=== PATIENT | male | born 1990 | race Caucasian/White ===

== ENCOUNTER 2017-08-24 16:04 | Emergency (ER) | payer SELFPAY ==
[~2017-08-24] VITALS: Ht 172.7 cm; Wt 72.7 kg
[2017-08-24 17:58] VITALS: BP 132/61
[2017-08-24] MEDS ORDERED: LORA0.5T83 PO (18:38)
== END 2017-08-24 19:20 | disposition left against medical advice (07) ==
LOC: EMS 16:06
DX: F41.9 Anxiety disorder, unspecified (principal); F32.9 Major depressive disorder, single episode, unspecified
CPT/HCPCS: 99283

== ENCOUNTER 2018-10-04 01:45 | Inpatient (IN) | payer MEDICAID, OTHER ==
[~2018-10-04] VITALS: Ht 175.3 cm; Wt 77.2 kg
[~2018-10-04 01:45] MED LIST: LORA0.5T83 PO
[2018-10-04 04:14] LABS: BASOPHILS % (AUTO) 0.7 % (0.0-2.0); EOSINOPHILS % (AUTO) 5.1 % (1.0-6.0); HEMATOCRIT 43.9 % (41-53); HEMOGLOBIN 14.8 g/dL (13.5-17.5); LYMPHOCYTES # (AUTO) 3.4 K/uL (1.0-4.8); LYMPHOCYTES % (AUTO) 35.7 % (22.0-44.0); MEAN CORPUSCULAR HEMOGLOBIN 31.8 pg (26.0-34.0); MEAN CORPUSCULAR HGB CONC 33.8 G/dL (31.0-37.0); MEAN CORPUSCULAR VOLUME 94 fL (80-100); MONOCYTES # (AUTO) 0.9 K/uL (0.1-1.0); NEUTROPHILS # (AUTO) 4.7 K/uL (1.8-7.7); NEUTROPHILS % (AUTO) 49.5 % (40.0-70.0); PLATELET COUNT (AUTO) 280 K/uL (150-450); RED BLOOD CELL COUNT(AUTO) 4.66 MIL/uL (4.50-5.90)
[2018-10-04 04:20] LABS: ANION GAP 13 mmol/L (8-16); CALCIUM, TOTAL 9.2 mg/dL (8.8-10.5); CARBON DIOXIDE 27 mmol/L (22-29); CHLORIDE 102 mmol/L (98-107); CREATININE 1.26 mg/dL (0.60-1.30); GLOMERULAR FILTR. RATE CALC > 60 mL/min (>60); GLUCOSE,RANDOM 95 mg/dL (70-110); SODIUM SERUM 142 mmol/L (136-145); UREA NITROGEN, BLOOD 18 mg/dL (7-18)
[2018-10-04 04:27] LABS: ALANINE AMINOTRANSFERASE 275 U/L (12-78); ALBUMIN 4.3 g/dL (3.4-5.0); ALKALINE PHOSPHATASE 103 U/L (46-116); ASPARTATE AMINOTRANSFERASE 552 U/L (15-37); BILIRUBIN,TOTAL 0.3 mg/dL (0.1-1.0); TOTAL PROTEIN, SERUM 7.5 g/dL (6.4-8.2)
[2018-10-04 05:27] LABS: AMPHET/METH SCREEN,URINE NEGATIVE (NEGATIVE); BARBITURATE SCREEN, URINE NEGATIVE (NEGATIVE); BENZODIAZEPINES SCREEN,URINE NEGATIVE (NEGATIVE); CANNABINOID SCREEN,URINE NEGATIVE (NEGATIVE); COCAINE SCREEN,URINE NEGATIVE (NEGATIVE); METHADONE SCREEN, URINE NEGATIVE (NEGATIVE); OPIATE SCREEN,URINE NEGATIVE (NEGATIVE)
[2018-10-04 05:30] LABS: PHENCYCLIDINE SCREEN,URINE NEGATIVE (NEGATIVE)
[2018-10-04] MEDS ORDERED: LIDOCAINE 1% 10 ML VIAL INJ ONE (07:00)
[2018-10-04] MEDS ORDERED: ACETAMINOPHEN 500 MG TABLET PO ONE (08:15)
[2018-10-04] MEDS ORDERED: BACITRACIN 0.9 GM PACKET OINTMENT TP ONE (08:15)
[2018-10-04] MEDS ORDERED: IBUPROFEN 800 MG TABLET PO ONE (09:00)
[2018-10-04] MEDS ORDERED: HALOPERIDOL 5 MG TABLET PO PRN (10:30)
[2018-10-04] MEDS: BuPROPion HCL XL 150 MG ER TABLET PO SCH (10:58)
[2018-10-04] MEDS: FLUoxetine HCL 20 MG CAPSULE PO SCH (10:58)
[2018-10-04] MEDS ORDERED: NICOTINE 14 MG/24 HOUR PATCH TD PRN ×2 (11:45)
[2018-10-04] MEDS ORDERED: MAG HYDROX/AL HYDROX/SIMETH ES 30 ML SUSPENSION UDCUP PO PRN ×2 (11:45)
[2018-10-04] MEDS ORDERED: CloNIDine HCL 0.1 MG TABLET PO PRN ×2 (11:45)
[2018-10-04] MEDS ORDERED: GuaiFENesin/D-METHORPHAN [SUGAR-FREE] 200-20MG/10 ML SYRUP UDCUP PO PRN ×2 (11:45)
[2018-10-04] MEDS ORDERED: PETROLATUM,WHITE 28 GM JELLY TP PRN ×2 (11:45)
[2018-10-04] MEDS ORDERED: DOCUSATE SODIUM 100 MG CAPSULE PO PRN ×2 (11:45)
[2018-10-04] MEDS ORDERED: LOPERAMIDE HCL 2 MG CAPSULE PO PRN ×2 (11:45)
[2018-10-04] MEDS ORDERED: ALBUTEROL SULFATE HFA 90 MCG/PUFF 8 GM INHALER IH PRN ×2 (11:45)
[2018-10-04] MEDS ORDERED: MAGNESIUM HYDROXIDE SUSPENSION 30 ML UDCUP PO PRN ×2 (11:45)
[2018-10-04] MEDS ORDERED: IBUPROFEN 400 MG TABLET PO PRN ×2 (11:45)
[2018-10-04] MEDS ORDERED: ONDANSETRON HCL 4 MG TABLET PO PRN ×2 (11:45)
[2018-10-04] MEDS ORDERED: ACETAMINOPHEN 325 MG TABLET PO PRN ×2 (11:45)
[2018-10-04 12:46] VITALS: BP 130/76
[2018-10-04 16:00] VITALS: BP 108/65
[2018-10-04] MEDS: BACITRACIN 28.4 GM OINTMENT TP SCH (17:02)
[2018-10-04] MEDS: LORazepam 2 MG TABLET PO PRN (17:28)
[2018-10-05] MEDS: ZOLPIDEM TARTRATE 10 MG TABLET PO PRN ×2 (00:14→20:03)
[2018-10-05 05:15] VITALS: BP 118/76
[2018-10-05 08:04] LABS: CHOL/HDL RATIO 2.9 (4.2-7.3)
[2018-10-05] MEDS: BuPROPion HCL XL 150 MG ER TABLET PO SCH (08:21)
[2018-10-05] MEDS: FLUoxetine HCL 20 MG CAPSULE PO SCH (08:21)
[2018-10-05] MEDS: BACITRACIN 28.4 GM OINTMENT TP SCH ×2 (08:21→17:05)
[2018-10-05 10:03] VITALS: BP 129/73
[2018-10-05] MEDS: LORazepam 2 MG TABLET PO PRN ×3 (10:11→20:03)
[2018-10-05 16:00] VITALS: BP 134/77
[2018-10-06 00:46] VITALS: BP 133/72
[2018-10-06 08:03] VITALS: BP 120/52
[2018-10-06] MEDS: BACITRACIN 28.4 GM OINTMENT TP SCH ×2 (08:25→16:34)
[2018-10-06] MEDS: FLUoxetine HCL 20 MG CAPSULE PO SCH (08:25)
[2018-10-06] MEDS: LORazepam 2 MG TABLET PO PRN ×4 (08:25→20:17)
[2018-10-06] MEDS: BuPROPion HCL XL 150 MG ER TABLET PO SCH (08:25)
[2018-10-06 16:00] VITALS: BP 130/75
[2018-10-06] MEDS: ZOLPIDEM TARTRATE 10 MG TABLET PO PRN (20:57)
[2018-10-07 06:27] VITALS: BP 116/71
[2018-10-07 08:36] VITALS: BP 116/65
[2018-10-07] MEDS: FLUoxetine HCL 20 MG CAPSULE PO SCH (08:46)
[2018-10-07] MEDS: BuPROPion HCL XL 150 MG ER TABLET PO SCH (08:46)
[2018-10-07] MEDS: BACITRACIN 28.4 GM OINTMENT TP SCH (08:47)
[2018-10-07] MEDS: LORazepam 2 MG TABLET PO PRN (09:33)
[2018-10-07] MEDS ORDERED: FLUO-191 PO (13:20)
[2018-10-07] MEDS ORDERED: BUPR-93 PO (13:20)
== END 2018-10-07 15:00 | disposition home or self-care (01) | DRG 740 ==
LOC: EMS 01:47 → B3A 12:07
PROVIDERS: ADMIT Psychiatry & Neurology Child & Adolescent Psychiatry; ATTEND Psychiatry & Neurology Child & Adolescent Psychiatry
PROC: 0XQHXZZ Repair Left Wrist Region, External Approach (ICD-10-PCS; principal; 2018-10-04)
DX: F33.2 Major depressive disorder, recurrent severe without psychotic features (principal); F10.129 Alcohol abuse with intoxication, unspecified; F41.9 Anxiety disorder, unspecified; S61.512A Laceration without foreign body of left wrist, initial encounter; W17.89XA Other fall from one level to another, initial encounter; Y93.89 Activity, other specified; Y92.89 Other specified places as the place of occurrence of the external cause; Y99.8 Other external cause status
CPT/HCPCS: 12002; 80074; G0480; J3490